=== PATIENT | female | born 1960 | race Caucasian/White ===

== ENCOUNTER → 2019-09-24 | Outpatient (CLI) | payer BC | LOC: MHCPAIN 09:28 | DX: M47.812 Spondylosis without myelopathy or radiculopathy, cervical region (principal); M54.2 Cervicalgia; R51 Headache; G89.29 Other chronic pain; M54.12 Radiculopathy, cervical region | CPT/HCPCS: G0463 ==

== ENCOUNTER → 2019-09-30 | Outpatient (CLI) | payer BC | LOC: MHCPAIN 11:48 | DX: M47.812 Spondylosis without myelopathy or radiculopathy, cervical region (principal); M54.2 Cervicalgia; M54.12 Radiculopathy, cervical region | CPT/HCPCS: J1100; Q9967 ==

== ENCOUNTER → 2019-10-14 | Outpatient (CLI) | payer BC ==
[~2019-10-14] MED LIST: CELEXA 20MG20 MG/TAB PO; NEURONTIN300 MG/CAP PO
== END ==
LOC: MHCPAIN 10:35
DX: M47.812 Spondylosis without myelopathy or radiculopathy, cervical region (principal); M54.2 Cervicalgia; R51 Headache; G89.29 Other chronic pain
CPT/HCPCS: G0463

== ENCOUNTER → 2021-05-12 | Outpatient (CLI) | payer BC | LOC: MHCPAIN 14:01 | DX: M47.812 Spondylosis without myelopathy or radiculopathy, cervical region (principal); M54.81 Occipital neuralgia; M54.2 Cervicalgia; R51.9 Headache, unspecified | CPT/HCPCS: G0463; J1040 ==

== ENCOUNTER → 2021-06-08 | Outpatient (CLI) | payer BC | LOC: MHCPAIN 13:21 | DX: M47.812 Spondylosis without myelopathy or radiculopathy, cervical region (principal); M54.2 Cervicalgia; G89.29 Other chronic pain; R51.9 Headache, unspecified | CPT/HCPCS: G0463 ==

== ENCOUNTER → 2021-06-14 | Outpatient (CLI) | payer BC | LOC: MHCPAIN 13:45 | DX: M47.812 Spondylosis without myelopathy or radiculopathy, cervical region (principal); M54.2 Cervicalgia; R51.9 Headache, unspecified ==

== ENCOUNTER → 2021-06-23 | Outpatient (CLI) | payer BC | LOC: MHCPAIN 14:13 | DX: M47.812 Spondylosis without myelopathy or radiculopathy, cervical region (principal); M54.2 Cervicalgia; R51.9 Headache, unspecified; G89.29 Other chronic pain | CPT/HCPCS: G0463 ==

== ENCOUNTER → 2021-07-12 | Outpatient (CLI) | payer BC | LOC: MHCPAIN 09:15 | DX: M47.812 Spondylosis without myelopathy or radiculopathy, cervical region (principal); M54.2 Cervicalgia; R51.9 Headache, unspecified | CPT/HCPCS: J0461 ==

== ENCOUNTER → 2021-07-26 | Outpatient (CLI) | payer BC | LOC: MHCPAIN 12:11 | DX: M47.812 Spondylosis without myelopathy or radiculopathy, cervical region (principal); M54.81 Occipital neuralgia; M54.2 Cervicalgia; G44.86 Cervicogenic headache | CPT/HCPCS: G0463; J1100; J2250; J3010 ==